=== PATIENT | female | born 1995 | race Caucasian/White ===

== ENCOUNTER 2016-11-08 17:59 | Emergency (ER) | payer MEDICAID ==
[2016-11-08 18:19] VITALS: TEMP 97.8
[2016-11-08] MEDS ORDERED: IPRATROPIUM/ALBUTEROL 3 ML VIAL NEB ONE (18:24)
[2016-11-08] MEDS ORDERED: predniSONE 20 MG TAB PO ONE (18:24)
[2016-11-08] MEDS ORDERED: MONTELUKAST 10 MG TAB PO ONE (18:25)
[2016-11-08] MEDS ORDERED: ALUMINUM & MAGNESIUM HYDROXIDE 30 ML UD PO ONE (18:25)
[2016-11-08] MEDS ORDERED: ALPRAZolam 0.25 MG TAB PO ONE ×2 (18:26→20:45)
[2016-11-08] MEDS ORDERED: methylPREDNISolone SODIUM SUC 125 MG/2 ML VIAL IM ONE (19:00)
--- NOTE | 2016-11-08 19:50 | RAD ---
EXAM DESCRIPTION: Chest,2 Views CLINICAL HISTORY: 21 years Female sob 2 weeks COMPARISON: None. FINDINGS: The cardiomediastinal silhouette appears unremarkable. No consolidating infiltrates or pleural effusions. No pneumothorax. IMPRESSION: No acute abnormality is identified. Electronically signed by: Silva Fletcher 11/08/2016 7:49 PM CDT
[2016-11-08] MEDS ORDERED: SUCRALFATE 1 GM/10 ML 1 GM UD PO ONE (20:45)
--- NOTE | 2016-11-08 20:48 | ED.PDOC ---
History of Present Illness - General Chief Complaint: Respiratory Problem Stated Complaint: shortness of breath Time Seen by Provider: 11/08/16 18:15 Source: patient, family Exam Limitations: no limitations - History of Present Illness Initial Comments: the patient is a 21-year-old femalewith a very significant history of anxiety presenting with a week's worth of intermittent nausea and vomiting with severe reflux symptoms along withsome mild shortness of breath as well as a mild sore throat and a feeling of difficulty breathing. The patient is extremely anxious. No fevers. The patient exhibited a fairly classic panic attack within 30 minutes of arrival here. The patient reports that she's been having significant reflux problems over the last few weeks. She as been waking up with acid taste in the back of her mouth followed by her throwing up. no syncope or near syncope. When she throws up she gets some chest pain. No palpitations. She does questionably have a history of some asthma and does take some albuterol nebulizer treatments. These seem to help a little bit with the shortness of breath. Shortness of breath is improved with drinking water. GI symptoms worsen with large, spicy or hot meals. Timing/Duration: 1 week Severity: moderate Improving Factors: nothing Worsening Factors: eating Associated Symptoms: chest pain, cough, loss of appetite, malaise, nausea/ vomiting, shortness of breath Allergies/Adverse Reactions: Allergies Aspirin Allergy (Verified 01/11/16 00:23) Shortness of Breath pt unable to explain reaction Ketorolac Tromethamine [From Toradol] Allergy (Verified 01/11/16 00:23) pt unable to explain reaction NSAIDs Allergy (Verified 01/11/16 00:23) Shortness of Breath Tramadol [From Ultram] Allergy (Verified 01/11/16 00:23) Other pt unable to explain reaction Home Medications: Ambulatory Orders Albuterol Sulfate [Proair Hfa] 2 puff INH Q6H PRN 11/08/16 Famotidine 20 mg PO BID #60 tab 11/08/16 Sucralfate Tab [Carafate Tab] 1 gm PO QID #30 tab 11/08/16 Review of Systems - Review of Systems Constitutional: States: malaise EENTM: States: throat pain Respiratory: States: cough, short of breath Cardiology: States: chest pain Gastrointestinal/Abdominal: States: abdominal pain, nausea, vomiting Genitourinary: States: no symptoms reported Musculoskeletal: States: no symptoms reported Skin: States: no symptoms reported Neurological: States: anxiety Endocrine: States: no symptoms reported All other Systems: No Change from Baseline Past Medical History (General) - Patient Medical History Hx Seizures: No Hx Stroke: No Hx Dementia: No Hx Asthma: Yes Hx of COPD: No Hx Cardiac Disorders: No Hx Congestive Heart Failure: No Hx Pacemaker: No Hx Hypertension: No Hx Thyroid Disease: No Hx Diabetes: No Hx Gastroesophageal Reflux: No Hx Renal Disease: No Hx Cancer: No Hx of HIV: No Hx Hepatitis C: No Hx MRSA: No Surgical History: tonsillectomy - Vaccination History Hx Tetanus, Diphtheria Vaccination: Yes Hx Influenza Vaccination: No Hx Pneumococcal Vaccination: No - Social History Hx Tobacco Use: No Hx Chewing Tobacco Use: No Hx Alcohol Use: No Hx Substance Use: No Hx Substance Use Treatment: No Hx Depression: Yes Hx Physical Abuse: No Hx Emotional Abuse: No Hx Suspected Abuse: No - Female History Patient is a Female of Child Bearing Age (10 -59 yrs old): Yes Hx Last Menstrual Period: 01/27/14 Patient : No - just had a baby Expected Date of Delivery:: 11/06/14 Family Medical History - Family History Father Name: Goyo Age (years): 42 Living Status: Still Living Hx Family Stroke: - gp Hx Family Diabetes: Yes Hx Family;Other: unsure of father's medical history Brother Name: Mague Oliver Age (years): 15 Living Status: Still Living Hx Family Asthma: Yes Mother Family History: No Known Name: Christy Age (years): 43 Living Status: Still Living Hx Family Asthma: Yes Age of Onset (years of age): 14 Hx Family Congestive Heart Failure: No Hx Family Hypertension: No Hx Family Stroke: No Hx Cardiac Disease: No Hx Family Diabetes: Yes - gest dm Hx Family Cancer: No Hx Family;Other: CIDP-dx at age 38 Paternal Grandparents Family History: Unknown Hx Family Cancer: Yes - unknown type Physical Exam - Physical Exam General Appearance: Anxious Eye Exam: bilateral normal Ears, Nose, Throat: hearing grossly normal, normal ENT inspection, normal pharynx Neck: full range of motion, supple, normal inspection Respiratory: chest non-tender, lungs clear, normal breath sounds, no respiratory distress, no accessory muscle use Cardiovascular/Chest: normal peripheral pulses, regular rate, rhythm, no edema Peripheral Pulses: radial,right: 2+, radial,left: 2+ Gastrointestinal/Abdominal: soft, other - mild epigastric discomfort palpation. The patient is obese. Rectal Exam: deferred Back Exam: normal inspection, no CVA tenderness, no vertebral tenderness Extremity: normal range of motion, non-tender, normal inspection, no pedal edema , normal capillary refill Neurologic: alert, oriented x 3, other - xtremely anxious Skin Exam: normal color Comments: Vital Signs - 24 hr 11/08/16 11/08/16 18:07 18:45 Temperature 97.8 F Pulse Rate 102 H Pulse Rate [ 74 Right Brachial] Respiratory 16 28 H Rate Blood Pressure 113/67 [Right Arm] O2 Sat by Pulse 100 99 Oximetry Progress - Progress Progress: 11/08/16 20:49 the patient is a 21-year-old female presenting to the emergency room with multiple issues. Primarily it appears the patient has significant gastritis with reflux that appears to be causing throat discomfort and irritation of her airways. The patient will be placed on Pepcid twice daily for the next month along with Carafate for the next week. She additionally needs to [employer]et [employer] Maalox to take on an as-needed basis. She can continue her breathing treatments for her asthma. she needs to sleep with the head of her bed elevated. The patient does have some significant anxiety and she needs to discuss this with her primary care doctor. she needs to follow up with her primary care doctor early next week. It will likely take at least 1-2 weeks to control her symptoms. She needs to keep herself well hydrated. - Results/Orders Results/Orders: Laboratory Tests 11/08/16 11/08/16 11/08/16 19:30 19:30 19:30 WBC 12.1 H RBC 4.90 Hgb 14.7 Hct 43.0 MCV 87.8 MCH 30.0 MCHC 34.2 RDW 13.0 Plt Count 249 MPV 8.3 Absolute Neuts (auto) 6.50 Absolute Lymphs (auto) 3.60 H Absolute Monos (auto) 0.80 Absolute Eos (auto) 1.20 H Absolute Basos (auto) 0.10 Neutrophils % 53.3 Lymphocytes % 30.0 Monocytes % 6.3 Eosinophils % 9.8 H Basophils % 0.6 D-Dimer, Quantitative < 200 Sodium 140 Potassium 3.4 L Chloride 108 Carbon Dioxide 22 Anion Gap 13.4 BUN 9 Creatinine 0.63 BUN/Creatinine Ratio 14.3 Random Glucose 101 Serum Osmolality 278.2 Calcium 9.3 Magnesium 2.0 Total Bilirubin 0.7 AST 19 ALT 18 Alkaline Phosphatase 88 Creatine Kinase 93 CK-MB (CK-2) 2.1 CK-MB (CK-2) % Not Reportable Troponin I < 0.02 B-Natriuretic Peptide 10.4 Serum Total Protein 7.6 Albumin 4.4 Globulin 3.2 Albumin/Globulin Ratio 1.4 TSH 2.11 Urine HCG, Qual 11/08/16 19:30 WBC RBC Hgb Hct MCV MCH MCHC RDW Plt Count MPV Absolute Neuts (auto) Absolute Lymphs (auto) Absolute Monos (auto) Absolute Eos (auto) Absolute Basos (auto) Neutrophils % Lymphocytes % Monocytes % Eosinophils % Basophils % D-Dimer, Quantitative Sodium Potassium Chloride Carbon Dioxide Anion Gap BUN Creatinine BUN/Creatinine Ratio Random Glucose Serum Osmolality Calcium Magnesium Total Bilirubin AST ALT Alkaline Phosphatase Creatine Kinase CK-MB (CK-2) CK-MB (CK-2) % Troponin I B-Natriuretic Peptide Serum Total Protein Albumin Globulin Albumin/Globulin Ratio TSH Urine HCG, Qual Negative chest x-ray appears grossly normal. Departure - Departure Clinical Impression: GERD with esophagitis, Anxiety attack Disposition: Discharge to Home or Self Care Condition: Fair Departure Forms: ED Discharge - Pt. Copy, Patient Portal Self Enrollment Instructions: Gastroesophageal Reflux Disease -- Adolescent Diet: bland diet Activity: increase activity as tolerated Prescriptions: Famotidine 20 mg PO BID #60 tab Sucralfate Tab [Carafate Tab] 1 gm PO QID #30 tab Home Medications: Ambulatory Orders Albuterol Sulfate [Proair Hfa] 2 puff INH Q6H PRN 11/08/16 Famotidine 20 mg PO BID #60 tab 11/08/16 Sucralfate Tab [Carafate Tab] 1 gm PO QID #30 tab 11/08/16 Additional Instructions: the patient is a 21-year-old female presenting to the emergency room with multiple issues. Primarily it appears the patient has significant gastritis with reflux that appears to be causing throat discomfort and irritation of her airways. The patient will be placed on Pepcid twice daily for the next month along with Carafate for the next week. She additionally needs to picket [employer] Maalox to take on an as-needed basis. She can continue her breathing treatments for her asthma. she needs to sleep with the head of her bed elevated. The patient does have some significant anxiety and she needs to discuss this with her primary care doctor. she needs to follow up with her primary care doctor early next week. It will likely take at least 1-2 weeks to control her symptoms. She needs to keep herself well hydrated.
[2016-11-08 21:34] VITALS: BP 127/82; O2SAT 95
== END 2016-11-08 21:30 | disposition home or self-care (01) ==
LOC: ER 17:59
DX: K21.0 Gastro-esophageal reflux disease with esophagitis (principal); F41.0 Panic disorder [episodic paroxysmal anxiety]; J45.909 Unspecified asthma, uncomplicated; Z88.6 Allergy status to analgesic agent
CPT/HCPCS: 36415; 71020; 80053; 81025; 82550; 82553; 83735; 83880; 84443; 84484; 85025; 85379; 94640; J2930; J7512; J7620

== ENCOUNTER 2016-12-30 12:21 | Emergency (ER) | payer MEDICAID ==
[2016-12-30 12:53] VITALS: TEMP 98.8
--- NOTE | 2016-12-30 12:55 | ED.PDOC ---
History of Present Illness - General Chief Complaint: General Stated Complaint: Hematuria, Dysuria, Cough/Congestion, Ear Pain Time Seen by Provider: 12/30/16 12:54 Source: patient Exam Limitations: no limitations - History of Present Illness Initial Comments: Maxine Garcia 21 y/o female stated that she has noted blood tinged urine for the last two weeks getting worse with sharp suprapubic pains the last one week intermittent Timing/Duration: week - 2 Quality: mild, sharpness, waxing/waning Onset Location: suprapubic Radiation: none Activites at Onset: none Prior abdominal problems: none Sexual intercourse history: single partner Improving Factors: nothing, eating Associated Symptoms: denies symptoms Allergies/Adverse Reactions: Allergies Aspirin Allergy (Verified 12/30/16 13:05) Shortness of Breath pt unable to explain reaction Ketorolac Tromethamine [From Toradol] Allergy (Verified 12/30/16 13:05) pt unable to explain reaction NSAIDs Allergy (Verified 12/30/16 13:05) Shortness of Breath Tramadol [From Ultram] Allergy (Verified 12/30/16 13:05) Other pt unable to explain reaction Home Medications: Ambulatory Orders Albuterol Sulfate [Proair Hfa] 2 puff INH Q6H PRN 11/08/16 Cefuroxime Axetil [Ceftin] 500 mg PO BID #14 tab 12/30/16 Phenazopyridine HCl [Pyridium] 200 mg PO BID #10 tab 12/30/16 Efpwhoqsxbiop-Vsewobpysl-St-Gu [Mucinex Fast-Max Day/Nigh] 1 cap PO BID #30 cap 12/30/16 Review of Systems - Review of Systems Constitutional: States: no symptoms reported EENTM: States: nose congestion Respiratory: States: cough - dry Cardiology: States: no symptoms reported Gastrointestinal/Abdominal: States: no symptoms reported Genitourinary: States: see HPI Musculoskeletal: States: no symptoms reported Skin: States: no symptoms reported Past Medical History (General) - Patient Medical History Hx Seizures: No Hx Stroke: No Hx Dementia: No Hx Asthma: Yes Hx of COPD: No Hx Cardiac Disorders: No Hx Congestive Heart Failure: No Hx Pacemaker: No Hx Hypertension: No Hx Thyroid Disease: No Hx Diabetes: No Hx Gastroesophageal Reflux: No Hx Renal Disease: No Hx Cancer: No Hx of HIV: No Hx Hepatitis C: No Hx MRSA: No - Vaccination History Hx Tetanus, Diphtheria Vaccination: Yes Hx Influenza Vaccination: No Hx Pneumococcal Vaccination: No - Social History Hx Tobacco Use: No Hx Chewing Tobacco Use: No Hx Alcohol Use: No Hx Substance Use: No Hx Substance Use Treatment: No Hx Depression: Yes Hx Physical Abuse: No Hx Emotional Abuse: No Hx Suspected Abuse: No - Female History Hx Last Menstrual Period: 01/27/14 Patient : No - just had a baby Expected Date of Delivery:: 11/06/14 Family Medical History - Family History Father Name: Goyo Age (years): 42 Living Status: Still Living Hx Family Stroke: - gp Hx Family Diabetes: Yes Hx Family;Other: unsure of father's medical history Brother Name: Mague Oliver Age (years): 15 Living Status: Still Living Hx Family Asthma: Yes Mother Family History: No Known Name: Christy Age (years): 43 Living Status: Still Living Hx Family Asthma: Yes Age of Onset (years of age): 14 Hx Family Congestive Heart Failure: No Hx Family Hypertension: No Hx Family Stroke: No Hx Cardiac Disease: No Hx Family Diabetes: Yes - gest dm Hx Family Cancer: No Hx Family;Other: CIDP-dx at age 38 Paternal Grandparents Family History: Unknown Living Status: Still Living Hx Family Cancer: Yes - unknown type Physical Exam - Physical Exam General Appearance: Alert, No apparent distress Eyes, Ears, Nose, Throat Exam: other - nasal congestion Neck: non-tender, full range of motion, supple Cardiovascular/Respiratory: regular rate, rhythm, no M/R/G, normal peripheral pulses, normal breath sounds Gastrointestinal/Abdominal: non tender, soft, no organomegaly Extremity: non-tender, no pedal edema, no calf tenderness Neurologic: alert, normal mood/affect, oriented x 3 Skin Exam: normal color, warm/dry Lymphatic: no adenopathy Progress - Progress Progress: 12/30/16 13:11 Vital Signs - 8 hr 12/30/16 12:50 Temperature 98.8 F Pulse Rate [ 84 Left Radial] Respiratory 18 Rate Blood Pressure 132/88 [Left Arm] O2 Sat by Pulse 95 Oximetry - Results/Orders Results/Orders: Laboratory Tests 12/30/16 12/30/16 12:57 12:57 Urine Color Maxine H Urine Appearance Cloudy Urine pH 5.5 Ur Specific [place] >= 1.030 Urine Protein 100 H Urine Glucose (UA) Negative Urine Ketones Trace Urine Blood Large H Urine Nitrite Negative Urine Bilirubin Small H Urine Urobilinogen 0.2 Ur Leukocyte Esterase Negative Urine RBC >50 H Urine WBC 0 Ur Epithelial Cells 1-3 Urine Bacteria 0 Urine HCG, Qual Negative Departure - Departure Clinical Impression: Cystitis Upper respiratory infection Qualifiers: URI type: unspecified URI Qualified Code(s): J06.9 - Acute upper respiratory infection, unspecified Time of Disposition: :31 Disposition: Discharge to Home or Self Care Departure Forms: ED Discharge - Pt. Copy, Patient Portal Self Enrollment Instructions: DI for Hemorrhagic Cystitis Referrals: Errol Adame MD [Primary Care Provider] - 1-2 Weeks Prescriptions: Cefuroxime Axetil [Ceftin] 500 mg PO BID #14 tab Phenazopyridine HCl [Pyridium] 200 mg PO BID #10 tab Xdlahikgwaszt-Vxdlwdffhr-Zd-Gu [Mucinex Fast-Max Day/Nigh] 1 cap PO BID #30 cap Home Medications: Ambulatory Orders Albuterol Sulfate [Proair Hfa] 2 puff INH Q6H PRN 11/08/16 Cefuroxime Axetil [Ceftin] 500 mg PO BID #14 tab 12/30/16 Phenazopyridine HCl [Pyridium] 200 mg PO BID #10 tab 12/30/16 Cgyyiywqspmba-Qudqcpkbqk-Wc-Gu [Mucinex Fast-Max Day/Nigh] 1 cap PO BID #30 cap 12/30/16 Additional Instructions: Follow up with Dr. Adame 08/2016 call for appointment;May USE AFRIN Nose Foreman (Over the counter)2 sprays each nose am/pm 3 days on 3 days off as needed for nasal congestion
[2016-12-30 13:49] VITALS: BP 102/68; O2SAT 96
== END 2016-12-30 13:49 | disposition home or self-care (01) ==
LOC: ER 12:21
DX: N30.91 Cystitis, unspecified with hematuria (principal); J06.9 Acute upper respiratory infection, unspecified; Z88.6 Allergy status to analgesic agent

== ENCOUNTER 2017-01-25 17:18 | Emergency (ER) | payer OTHER ==
[2017-01-25 17:35] VITALS: BP 127/74; TEMP 98.3; O2SAT 98
--- NOTE | 2017-01-25 17:45 | ED.PDOC ---
History of Present Illness - General Chief Complaint: ENT Problem Stated Complaint: redness to right ear lobe Time Seen by Provider: 01/25/17 17:39 Source: patient Exam Limitations: no limitations - History of Present Illness Initial Comments: Patient presents with a lesion on her right ear lobe. It has blisters and is burning in sensation. No other symptoms. No previous episodes. Timing/Duration: 24 hours Severity: mild Improving Factors: nothing Worsening Factors: nothing Associated Symptoms: denies symptoms Allergies/Adverse Reactions: Allergies Aspirin Allergy (Verified 12/30/16 13:05) Shortness of Breath pt unable to explain reaction Ketorolac Tromethamine [From Toradol] Allergy (Verified 12/30/16 13:05) pt unable to explain reaction NSAIDs Allergy (Verified 12/30/16 13:05) Shortness of Breath Tramadol [From Ultram] Allergy (Verified 12/30/16 13:05) Other pt unable to explain reaction Home Medications: Ambulatory Orders Albuterol Sulfate [Proair Hfa] 2 puff INH Q6H PRN 11/08/16 Cefuroxime Axetil [Ceftin] 500 mg PO BID #14 tab 12/30/16 Phenazopyridine HCl [Pyridium] 200 mg PO BID #10 tab 12/30/16 Gosyyodvghnte-Supkkhnnyc-Za-Gu [Mucinex Fast-Max Day/Nigh] 1 cap PO BID #30 cap 12/30/16 Acyclovir [Zovirax] 400 mg PO TID #30 tab 01/25/17 Review of Systems - Review of Systems Constitutional: States: no symptoms reported EENTM: States: no symptoms reported Respiratory: States: no symptoms reported Cardiology: States: no symptoms reported Gastrointestinal/Abdominal: States: no symptoms reported Genitourinary: States: no symptoms reported Musculoskeletal: States: no symptoms reported Skin: States: see HPI Neurological: States: no symptoms reported Endocrine: States: no symptoms reported Hematologic/Lymphatic: States: no symptoms reported Past Medical History (General) - Patient Medical History Hx Seizures: No Hx Stroke: No Hx Dementia: No Hx Asthma: No Hx of COPD: No Hx Cardiac Disorders: No Hx Congestive Heart Failure: No Hx Pacemaker: No Hx Hypertension: No Hx Thyroid Disease: No Hx Diabetes: No Hx Gastroesophageal Reflux: No Hx Renal Disease: No Hx Cancer: No Hx of HIV: No Hx Hepatitis C: No Hx MRSA: No Surgical History: tonsillectomy - Vaccination History Hx Tetanus, Diphtheria Vaccination: Yes Hx Influenza Vaccination: No Hx Pneumococcal Vaccination: No - Social History Hx Tobacco Use: Yes Hx Chewing Tobacco Use: No Hx Alcohol Use: No Hx Substance Use: No Hx Substance Use Treatment: No Hx Depression: Yes Hx Physical Abuse: No Hx Emotional Abuse: No Hx Suspected Abuse: No - Female History Hx Last Menstrual Period: 01/27/14 Patient : No - just had a baby Expected Date of Delivery:: 11/06/14 - Triage Comment ED Triage Comment: Pt states her noticed her right ear lobe red and infected today. Family Medical History - Family History Father Name: Goyo Age (years): 42 Living Status: Still Living Hx Family Stroke: - gp Hx Family Diabetes: Yes Hx Family;Other: unsure of father's medical history Brother Name: Mague Oliver Age (years): 15 Living Status: Still Living Hx Family Asthma: Yes Mother Family History: No Known Name: Christy Age (years): 43 Living Status: Still Living Hx Family Asthma: Yes Age of Onset (years of age): 14 Hx Family Congestive Heart Failure: No Hx Family Hypertension: No Hx Family Stroke: No Hx Cardiac Disease: No Hx Family Diabetes: Yes - gest dm Hx Family Cancer: No Hx Family;Other: CIDP-dx at age 38 Paternal Grandparents Family History: Unknown Living Status: Still Living Hx Family Cancer: Yes - unknown type Physical Exam - Physical Exam General Appearance: Alert Ears, Nose, Throat: other - Blistering herpetic lesion on the right anterior ear lobe. TTP. Neck: lymphadenopathy (R) - anterior cervical LAD, mobile, rubbery, NTTP Respiratory: lungs clear Cardiovascular/Chest: regular rate, rhythm Gastrointestinal/Abdominal: normal bowel sounds, non tender, soft Departure - Departure Clinical Impression: Herpes dermatitis Disposition: Discharge to Home or Self Care Departure Forms: ED Discharge - Pt. Copy, Patient Portal Self Enrollment Diet: resume usual diet Activity: increase activity as tolerated Referrals: Errol Adame MD [Primary Care Provider] - 1-2 Weeks Prescriptions: Acyclovir [Zovirax] 400 mg PO TID #30 tab Home Medications: Ambulatory Orders Albuterol Sulfate [Proair Hfa] 2 puff INH Q6H PRN 11/08/16 Cefuroxime Axetil [Ceftin] 500 mg PO BID #14 tab 12/30/16 Phenazopyridine HCl [Pyridium] 200 mg PO BID #10 tab 12/30/16 Hlmrlgxsmnrbf-Qrlgwlejvm-Zf-Gu [Mucinex Fast-Max Day/Nigh] 1 cap PO BID #30 cap 12/30/16 Acyclovir [Zovirax] 400 mg PO TID #30 tab 01/25/17 Additional Instructions: Take medication as directed until it is gone. Return to your regular doctor of the lesion does not resolve in 10 days.
== END 2017-01-25 17:59 | disposition home or self-care (01) ==
LOC: ER 17:18
DX: B00.89 Other herpesviral infection (principal); F32.9 Major depressive disorder, single episode, unspecified; Z87.891 Personal history of nicotine dependence; Z88.6 Allergy status to analgesic agent